=== PATIENT | male | born 1950 | race Caucasian/White ===

== ENCOUNTER 2025-08-17 19:20 | Emergency (ER) | payer MEDICARE, SELFPAY ==
--- OUTSIDE RECORDS SUMMARY | 2025-08-17 19:27 | XMS_ITS | Encounter Summary ---
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
--- OUTSIDE RECORDS SUMMARY | 2025-08-17 19:27 | XMS_ITS | Encounter Summary ---
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
--- OUTSIDE RECORDS SUMMARY | 2025-08-17 19:27 | XMS_ITS | Encounter Summary ---
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
--- OUTSIDE RECORDS SUMMARY | 2025-08-17 19:27 | XMS_ITS | Encounter Summary ---
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
--- OUTSIDE RECORDS SUMMARY | 2025-08-17 19:27 | XMS_ITS | Encounter Summary ---
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
--- OUTSIDE RECORDS SUMMARY | 2025-08-17 19:27 | XMS_ITS | Clinical Summary ---
Author Organization [facility] Address [address] 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
[2025-08-17 19:28] VITALS: BP 174/75; PULSE 56; TEMP 36.6; O2SAT 100
--- OUTSIDE RECORDS SUMMARY | 2025-08-17 19:28 | XMS_ITS | Data Portability ---
Author Organization ABDIRAHMAN [facility] Address [address] [place] [address] Assessment No assessment recorded. Plan of Treatment Reminders Order Date Submit Date Provider Last Modified By Organization Details Last Modified Time Details Appointments RECHECK 15 2025 08:30A Gage Weaver MD Not available Not available Not available Lab hemoglob in A1C/hemo globin total, QN, blood 2024 025 [facility], [address], [address], [place], [address], 07/13/2025 10:40:04 CMP, serum or plasma 2024 025 [facility], [address], [address], [place], [address], 07/13/2025 11:29:31 hemoglob in A1C/hemo globin total, QN, blood 2024 025 [facility], [address], [address], [place], [address], 01/14/2025 10:53:26 microalb umin, urine 2024 025 [email or web address] [facility], [address], [address], [place], [address], 01/21/2025 09:36:04 CMP, serum or plasma 2024 025 [facility], [address], [address], [place], [address], 01/14/2025 10:34:31 lipid panel, blood 2024 025 [facility], [address], [address], [place], [address], 01/14/2025 10:34:34 CBC 2024 025 [facility], [address], [address], [place], [address], 01/14/2025 10:25:33 CMP, serum or plasma 2023 024 [facility], [address], [address], [place], [address], 07/13/2024 10:11:09 HbA1c (hemoglo bin A1c), blood 2023 024 [facility] ([facility]), [address] [place] [address], [phone], 07/13/2024 09:59:05 lipid panel, blood 2023 024 [facility], [address], [address], [place], [address], 01/09/2024 11:09:51 CMP, serum or plasma 2023 024 [email or web address] [facility], [address], [address], [place], [address], 01/09/2024 13:21:47 HbA1c (hemoglo bin A1c), blood 2023 024 [facility] ([facility]), [address] [place] [address], [phone], 01/09/2024 10:37:29 CMP, serum or plasma [address] ([facility]), [address] [place], [address], 02/06/2025 13:34:07 HbA1c (hemoglo bin A1c), blood [address] ([facility]), [address] [place], [address], 02/06/2025 13:34:17 Referral None recorded . Procedures None recorded . Surgeries None recorded . Imaging None recorded . Medication Orders Jardianc e 10 mg tablet 2024 025 [email or web address] Not available 07/13/2025 09:59:25 losartan 100 mg-hydro chloroth iazide 25 mg tablet 2024 025 [facility] [place], [address] [place] [address], [address], 07/15/2025 12:13:04 Ozempic 2 mg/dose (8 mg/3 mL) subcutan eous pen injector 2024 025 [id number], [address], [place], [place], [id number], 01/14/2025 09:41:30 losartan 100 mg-hydro chloroth iazide 25 mg tablet 2024 025 [facility] #[id number], [address], [place], [place], [id number], 01/14/2025 09:41:30 atorvast atin 10 mg tablet 2022 023 [facility][id number], [address], [place], [place], [id number], 01/09/2024 09:50:39 losartan 100 mg-hydro chloroth iazide 25 mg tablet 2022 023 [facility] #[id number], [address], [place], [place], [id number], 07/09/2023 17:56:16 Patient TargetsNo targets recorded. Patient InstructionsNo instructions recorded. Reason for Referral None Reported. Results Created Date Observation Date Name Description Value Unit Range Abnormal Flag Note LastModifiedBy Organization Detail LastModifiedTime 07/09/2007/09/2023 HGBA1 C hemaglobin A1C 6.8 4.2-6. 5 high Not Available [facility] [address] [facility] [address], [place], [address], 07/09/2023 18:47:41 07/10/20 23 07/10/2023 CMP (MALE ) glucose 116.0 mg/dL 60.0-9 9.0 high Not Available [facility] [address] [facility] [address], [place], [address], 07/10/2023 10:02:08 07/10/20 23 07/10/2023 CMP (MALE ) BUN (blood urea nitrogen) 17.0 mg/dL 10.0-2 6.0 Not Available [facility] [address] [facility] [address], [place], [address], 07/10/2023 10:02:08 07/10/20 23 07/10/2023 CMP (MALE ) creatinine (serum) 0.9 mg/dL 0.4-1. 5 Not Available [place] [facility] [address] [facility] [address], [place], [address], 07/10/2023 10:02:08 07/10/20 23 07/10/2023 CMP (MALE ) BUN/creatini ne ratio 18.89 ratio Not Available [facility] [address] [facility] [address], [place], [address], 07/10/2023 10:02:08 07/10/20 23 07/10/2023 CMP (MALE ) eGFR calculated 88.2 Not Available [facility] [address] [facility] 1, [place], [address], 07/10/2023 10:02:08 07/10/20 23 07/10/2023 CMP (MALE ) total protein 7.7 g/dL 6.0-8. 5 Not Available [facility] [address] [facility], [place], [address], 07/10/2023 10:02:08 07/10/20 23 07/10/2023 CMP (MALE ) total bilirubin 0.6 mg/dL 0.2-1. 3 Not Available [facility] [address] [facility], [place], [address], 07/10/2023 10:02:08 07/10/20 23 07/10/2023 CMP (MALE ) albumin 4.7 g/dL 3.5-5. 5 Not Available [facility] [address] [facility] Lilly [facility] 1, [place], [address], 07/10/2023 10:02:08 07/10/20 23 07/10/2023 CMP (MALE ) globulin 3.0 calc Not Available [facility] [address] [facility], [place], [address], 07/10/2023 10:02:08 07/10/20 23 07/10/2023 CMP (MALE ) AST (SGOT) 35.0 U/L 0.0-46 .0 Not Available [facility] [address] [facility] 1, [place], [address], 07/10/2023 10:02:08 07/10/20 23 07/10/2023 CMP (MALE ) altv (SGPT) 31.0 U/L 13.0-6 9.0 normal Not Available [facility] [address] [facility] 1, [place], [address], 07/10/2023 10:02:08 07/10/20 23 07/10/2023 CMP (MALE ) A/G ratio 1.6 ratio Not Available [facility] [address] [facility], [place], [address], 07/10/2023 10:02:08 07/10/20 23 07/10/2023 CMP (MALE ) ALP phos 79.0 U/L 30.0-1 40.0 normal Not Available [facility] [address] [facility], [place], [address], 07/10/2023 10:02:08 07/10/20 23 07/10/2023 CMP (MALE ) calcium 9.3 mg/dL 8.4-10 .5 Not Available [facility] [address] [facility], [place], [address], 07/10/2023 10:02:08 07/10/20 23 07/10/2023 CMP (MALE ) sodium 138.0 mmol/ L 136.0- 145.0 Not Available [facility] [address] [facility], [place], [address], 07/10/2023 10:02:08 07/10/20 23 07/10/2023 CMP (MALE ) potassium 4.1 mmol/ L 3.5-5. 1 Not Available [facility] [address] [facility], [place], [address], 07/10/2023 10:02:08 07/10/20 23 07/10/2023 CMP (MALE ) chloride 99.0 mmol/ L 98.0-1 10.0 normal Not Available [facility] [address] [facility] Lilly [facility] 1, [place], [address], 07/10/2023 10:02:08 07/10/20 23 07/10/2023 CMP (MALE ) C02 30.0 mmol/ L 22.0-3 1.0 Not Available [facility] [address], [place], [address], 07/10/2023 10:02:08 07/10/20 23 07/10/2023 CMP (MALE ) anion gap 9.0 calc Not Available [facility] [address] [facility], [place], [address], 07/10/2023 10:02:08 07/10/20 23 07/10/2023 CMP (MALE ) osmolality 287.5 calc Not Available [facility] [address] [facility], [place], [address], 07/10/2023 10:02:08 01/09/20 24 01/09/2024 CMP (MALE ) glucose 154.0 mg/dL 60.0-9 9.0 high Not Available [facility] [address] [facility], [place], [address], 01/09/2024 11:09:49 01/09/20 24 01/09/2024 CMP (MALE ) BUN (blood urea nitrogen) 17.0 mg/dL 10.0-2 6.0 Not Available [facility] [address] [facility], [place], [address], 01/09/2024 11:09:49 01/09/20 24 01/09/2024 CMP (MALE ) creatinine (serum) 0.9 mg/dL 0.4-1. 5 Not Available [facility] [address] [facility], [place], [address], 01/09/2024 11:09:49 01/09/20 24 01/09/2024 CMP (MALE ) BUN/creatini ne ratio 19.54 ratio Not Available [facility] [address] [facility] 1, [place], [address], 01/09/2024 11:09:49 01/09/20 24 01/09/2024 CMP (MALE ) eGFR calculated 91.4 Not Available [facility] n [facility] [address] [facility] 1, [place], [address], 01/09/2024 11:09:49 01/09/20 24 01/09/2024 CMP (MALE ) total protein 7.6 g/dL 6.0-8. 5 Not Available [facility] [address] [facility] 1, [place], [address], 01/09/2024 11:09:49 01/09/20 24 01/09/2024 CMP (MALE ) total bilirubin 0.7 mg/dL 0.2-1. 3 Not Available [facility] [address] [facility] 1, [place], [address], 01/09/2024 11:09:49 01/09/20 24 01/09/2024 CMP (MALE ) albumin 4.4 g/dL 3.5-5. 5 Not Available [facility] [address] [facility] 1, [place], [address], 01/09/2024 11:09:49 01/09/20 24 01/09/2024 CMP (MALE ) globulin 3.2 calc Not Available [facility] [address] [facility] 1, [place], [address], 01/09/2024 11:09:49 01/09/20 24 01/09/2024 CMP (MALE ) AST (SGOT) 33.0 U/L 0.0-46 .0 Not Available [facility] [address] [facility] 1, [place], [address], 01/09/2024 11:09:49 01/09/20 24 01/09/2024 CMP (MALE ) altv (SGPT) 29.0 U/L 13.0-6 9.0 normal Not Available [place] [facility] [address] [facility] [address], [place], [address], 01/09/2024 11:09:49 01/09/20 24 01/09/2024 CMP (MALE ) A/G ratio 1.4 ratio Not Available Gonzalez Jhon [facility] [address] [facility] [address], [place], [address], 01/09/2024 11:09:49 01/09/20 24 01/09/2024 CMP (MALE ) ALP phos 89.0 U/L 30.0-1 40.0 normal Not Available [facility] [address] [facility] [address], [place], [address], 01/09/2024 11:09:49 01/09/20 24 01/09/2024 CMP (MALE ) calcium 9.1 mg/dL 8.4-10 .5 Not Available [facility] [address] [facility] [address], [place], [address], 01/09/2024 11:09:49 01/09/20 24 01/09/2024 CMP (MALE ) sodium 137.0 mmol/ L 136.0- 145.0 Not Available [facility] [address] [facility] [address], [place], [address], 01/09/2024 11:09:49 01/09/20 24 01/09/2024 CMP (MALE ) potassium 3.7 mmol/ L 3.5-5. 1 Not Available [facility] [address] [facility] [address], [place], [address], 01/09/2024 11:09:49 01/09/20 24 01/09/2024 CMP (MALE ) chloride 103.0 mmol/ L 98.0-1 10.0 normal Not Available [facility] [address] [facility] Quintan[facility] 1, [place], [address], 01/09/2024 11:09:49 01/09/20 24 01/09/2024 CMP (MALE ) C02 30.0 mmol/ L 22.0-3 1.0 Not Available [facility] [address] [facility] 1, [place], [address], 01/09/2024 11:09:49 01/09/20 24 01/09/2024 CMP (MALE ) anion gap 4.0 calc Not Available [facility] [address] [facility], [place], [address], 01/09/2024 11:09:49 01/09/20 24 01/09/2024 CMP (MALE ) osmolality 287.4 calc Not Available [facility] [address] [facility], [place], [address], 01/09/2024 11:09:49 01/09/20 24 01/09/2024 LIPID PROFI LE (MALE ) cholesterol 251.0 mg/dL 0.0-20 0.0 high Not Available [facility] [address] [facility], [place], [address], 01/09/2024 11:09:51 01/09/20 24 01/09/2024 LIPID PROFI LE (MALE ) trig 221.0 mg/dL 0.0-15 0.0 high Not Available [facility] [address] [facility] Lilly [facility] 1, [place], [address], 01/09/2024 11:09:51 01/09/20 24 01/09/2024 LIPID PROFI LE (MALE ) HDL - direct 42.0 mg/dL >40.0 Not Available [facility] [address] [facility] 1, [place], [address], 01/09/2024 11:09:51 01/09/20 24 01/09/2024 LIPID PROFI LE (MALE ) VLDL - direct 44.2 mg/dL Not Available [facility] [address] [facility] [address], [place], [address], 01/09/2024 11:09:51 01/09/20 24 01/09/2024 LIPID PROFI LE (MALE ) LDL - direct 164.8 mg/dL 0.0-13 0.0 high Not Available [facility] [address] [facility] [address], [place], [address], 01/09/2024 11:09:51 01/09/20 24 01/09/2024 HbA1c (hemo globi n A1c), blood HbA1c 8.3 Not Available [facility] [address] [place], [address], 01/09/2024 10:08:27 07/13/20 24 07/13/2024 CMP (MALE ) glucose 115.0 mg/dL 60.0-9 9.0 high Not Available [facility] [address] [address], [place], [address], 07/13/2024 10:11:09 07/13/20 24 07/13/2024 CMP (MALE ) BUN (blood urea nitrogen) 21.0 mg/dL 10.0-2 6.0 Not Available [facility] [address] [address], [place], [address], 07/13/2024 10:11:09 07/13/20 24 07/13/2024 CMP (MALE ) creatinine (serum) 1.0 mg/dL 0.4-1. 5 Not Available [facility] [address], [address], 07/13/2024 10:11:09 07/13/20 24 07/13/2024 CMP (MALE ) BUN/creatini ne ratio 20.39 ratio Not Available [facility] [address] [facility] 1, [place], [address], 07/13/2024 10:11:09 07/13/20 24 07/13/2024 CMP (MALE ) eGFR calculated 75.2 Not Available [facility] [address] [facility] 1, [place], [address], 07/13/2024 10:11:09 07/13/20 24 07/13/2024 CMP (MALE ) total protein 7.4 g/dL 6.0-8. 5 Not Available [facility] [address] [facility] Quintanillae [facility] 1, [place], [address], 07/13/2024 10:11:09 07/13/20 24 07/13/2024 CMP (MALE ) total bilirubin 0.6 mg/dL 0.2-1. 3 Not Available [facility] [address] [facility] 1, [place], [address], 07/13/2024 10:11:09 07/13/20 24 07/13/2024 CMP (MALE ) albumin 4.0 g/dL 3.5-5. 5 Not Available [facility] [address] [facility] 1, [place], [address], 07/13/2024 10:11:09 07/13/20 24 07/13/2024 CMP (MALE ) globulin 3.4 calc Not Available [facility] [address] [facility] 1, [place], [address], 07/13/2024 10:11:09 07/13/20 24 07/13/2024 CMP (MALE ) AST (SGOT) 53.0 U/L 0.0-46 .0 high Not Available [facility] [address] [facility] 1, [place], [address], 07/13/2024 10:11:09 07/13/20 24 07/13/2024 CMP (MALE ) altv (SGPT) 23.0 U/L 13.0-6 9.0 normal Not Available [facility] [address] [facility] 1, [place], [address], 07/13/2024 10:11:09 07/13/20 24 07/13/2024 CMP (MALE ) A/G ratio 1.2 ratio Not Available [facility] [address] [facility] 1, [place], [address], 07/13/2024 10:11:09 07/13/20 24 07/13/2024 CMP (MALE ) ALP phos 88.0 U/L 30.0-1 40.0 normal Not Available [facility] [address] [facility], [place], [address], 07/13/2024 10:11:09 07/13/20 24 07/13/2024 CMP (MALE ) calcium 9.1 mg/dL 8.4-10 .5 Not Available [facility] [address] [facility], [place], [address], 07/13/2024 10:11:09 07/13/20 24 07/13/2024 CMP (MALE ) sodium 137.0 mmol/ L 136.0- 145.0 Not Available [facility] [address] [facility], [place], [address], 07/13/2024 10:11:09 07/13/20 24 07/13/2024 CMP (MALE ) potassium 4.1 mmol/ L 3.5-5. 1 Not Available [facility] [address] [facility], [place], [address], 07/13/2024 10:11:09 07/13/20 24 07/13/2024 CMP (MALE ) chloride 104.0 mmol/ L 98.0-1 10.0 normal Not Available [facility] [address] [facility] [address], [place], [address], 07/13/2024 10:11:09 07/13/20 24 07/13/2024 CMP (MALE ) C02 27.0 mmol/ L 22.0-3 1.0 Not Available [facility] [address] [facility] [address], [place], [address], 07/13/2024 10:11:09 07/13/20 24 07/13/2024 CMP (MALE ) anion gap 6.0 calc Not Available Gonzalez C lisak [facility] [address] [facility] [address], [place], [address], 07/13/2024 10:11:09 07/13/20 24 07/13/2024 CMP (MALE ) osmolality 286.8 calc Not Available [facility] [address] [facility] [address], [place], [address], 07/13/2024 10:11:09 07/13/20 24 07/13/2024 HbA1c (hemo globi n A1c), blood HbA1c 6.4 Not Available [facility] [address] [place], [address], 07/13/2024 09:30:52 01/14/2001/14/2025 CBC WBC 9.3 x10 4.5-10 .5 Not Available [facility] [address] [facility] [address], [place], [address], 01/14/2025 10:25:33 01/14/20 25 01/14/2025 CBC RBC 4.68 x10 4.30-5 .90 Not Available [facility] [address] [facility] [address], [place], [address], 01/14/2025 10:25:33 01/14/20 25 01/14/2025 CBC HGB 14.0 g/dL 13.5-1 8.0 Not Available [facility] [address] [facility] 1, [place], [address], 01/14/2025 10:25:33 01/14/20 25 01/14/2025 CBC HCT 40.6 % 35.0-6 0.0 Not Available [facility] [address] [facility] 1, [place], [address], 01/14/2025 10:25:33 01/14/20 25 01/14/2025 CBC MCV 86.8 fL 80.0-9 9.9 Not Available [facility] [address] [facility] 1, [place], [address], 01/14/2025 10:25:33 01/14/20 25 01/14/2025 CBC MCH 29.9 pg 27.0-3 2.0 Not Available [facility] [address] [facility] 1, [place], [address], 01/14/2025 10:25:33 01/14/20 25 01/14/2025 CBC MCHC 34.5 g/dL 32.0-3 6.0 Not Available [facility] [address] [facility] 1, [place], [address], 01/14/2025 10:25:33 01/14/20 25 01/14/2025 CBC RDW 14.0 % 11.5-1 4.5 Not Available G[facility] [address] [facility] 1, [place], [address], 01/14/2025 10:25:33 01/14/20 25 01/14/2025 CBC plt 247.5 x10 150.0- 451.0 Not Available [facility] [address] [facility] [address] [address], [place], [address], 01/14/2025 10:25:33 01/14/20 25 01/14/2025 CBC lymphocytes % 16.0 % 20.0-5 0.0 low Not Available [facility] [address] [facility], [place], [address], 01/14/2025 10:25:33 01/14/20 25 01/14/2025 CBC granulcytes % 73.5 % 30.0-7 0.0 high Not Available [place] [facility] [address] [facility], [place], [address], 01/14/2025 10:25:33 01/14/20 25 01/14/2025 CBC monocytes % 8.8 % 2.0-16 .0 Not Available [facility] [address] [address], [place], [address], 01/14/2025 10:25:33 01/14/20 25 01/14/2025 CBC granulcytes# 6.9 x10 Not Abbie ilable [facility] [address] [address], [place], [address], 01/14/2025 10:25:33 01/14/20 25 01/14/2025 CBC lymphocytes # 1.5 x10 Not Available [facility] [address] [address], [place], [address], 01/14/2025 10:25:33 01/14/20 25 01/14/2025 CBC monocytes # 0.8 x10 Not Avai lable [facility] [address] [facility], [place], [address], 01/14/2025 10:25:33 01/14/20 25 01/14/2025 CMP (MALE ) glucose 117.0 mg/dL 60.0-9 9.0 high Not Available [facility] [address] [facility] 1, [place], [address], 01/14/2025 10:34:31 01/14/20 25 01/14/2025 CMP (MALE ) BUN (blood urea nitrogen) 23.0 mg/dL 10.0-2 6.0 Not Available [facility] [address] [facility] [address], [place], [address], 01/14/2025 10:34:31 01/14/20 25 01/14/2025 CMP (MALE ) creatinine (serum) 1.1 mg/dL 0.4-1. 5 Not Available [facility] [address] [facility] [address], [place], [address], 01/14/2025 10:34:31 01/14/20 25 01/14/2025 CMP (MALE ) BUN/creatini ne ratio 20.91 ratio Not Available [facility] [address] [facility] [address], [place], [address], 01/14/2025 10:34:31 01/14/20 25 01/14/2025 CMP (MALE ) eGFR calculated 69.5 Not Available [facility] [address] [facility] [address], [place], [address], 01/14/2025 10:34:31 01/14/20 25 01/14/2025 CMP (MALE ) total protein 7.7 g/dL 6.0-8. 5 Not Available [facility] [address] [facility] [address], [place], [address], 01/14/2025 10:34:31 01/14/20 25 01/14/2025 CMP (MALE ) total bilirubin 0.8 mg/dL 0.2-1. 3 Not Available [facility] [address] [facility] [address], [place], [address], 01/14/2025 10:34:31 01/14/20 25 01/14/2025 CMP (MALE ) albumin 4.3 g/dL 3.5-5. 5 Not Available [facility] [address] [facility], [place], [address], 01/14/2025 10:34:31 01/14/20 25 01/14/2025 CMP (MALE ) globulin 3.4 calc Not Available [facility] [address] [facility] [address], [place], [address], 01/14/2025 10:34:31 01/14/20 25 01/14/2025 CMP (MALE ) AST (SGOT) 35.0 U/L 0.0-46 .0 Not Available [facility] [address] [facility] 1, [place], [address], 01/14/2025 10:34:31 01/14/20 25 01/14/2025 CMP (MALE ) altv (SGPT) 28.0 U/L 13.0-6 9.0 normal Not Available [facility] [address] [facility], [place], [address], 01/14/2025 10:34:31 01/14/20 25 01/14/2025 CMP (MALE ) A/G ratio 1.3 ratio Not Available Gonzalez C [facility]ek [facility] [address] [address], [place], [address], 01/14/2025 10:34:31 01/14/20 25 01/14/2025 CMP (MALE ) ALP phos 74.0 U/L 30.0-1 40.0 normal Not Available [facility] [address] [facility] [address], [place], [address], 01/14/2025 10:34:31 01/14/20 25 01/14/2025 CMP (MALE ) calcium 9.4 mg/dL 8.4-10 .5 Not Available [facility] [address] [facility] [address], [place], [address], 01/14/2025 10:34:31 01/14/20 25 01/14/2025 CMP (MALE ) sodium 140.0 mmol/ L 136.0- 145.0 Not Available [facility] [address] [facility] [place], [address], 01/14/2025 10:34:31 01/14/20 25 01/14/2025 CMP (MALE ) potassium 4.1 mmol/ L 3.5-5. 1 Not Available [facility] [address] [facility] [address], [place], [address], 01/14/2025 10:34:31 01/14/20 25 01/14/2025 CMP (MALE ) chloride 101.0 mmol/ L 98.0-1 10.0 normal Not Available [facility] [address] [facility] [address], [place], [address], 01/14/2025 10:34:31 01/14/20 25 01/14/2025 CMP (MALE ) C02 29.0 mmol/ L 22.0-3 1.0 Not Available [facility] [address] [facility] 1, [place], [address], 01/14/2025 10:34:31 01/14/20 25 01/14/2025 CMP (MALE ) anion gap 10.0 calc Not Available [facility] [address] [facility] 1, [place], [address], 01/14/2025 10:34:31 01/14/20 25 01/14/2025 CMP (MALE ) osmolality 293.5 calc Not Available [facility] [address] [facility] 1, [place], [address], 01/14/2025 10:34:31 01/14/20 25 01/14/2025 LIPID PROFI LE (MALE ) cholesterol 188.0 mg/dL 0.0-20 0.0 Not Available [facility] [address] [facility] 1, [place], [address], 01/14/2025 10:34:33 01/14/20 25 01/14/2025 LIPID PROFI LE (MALE ) trig 187.0 mg/dL 0.0-15 0.0 high Not Available [facility] [address] [facility] 1, [place], [address], 01/14/2025 10:34:33 01/14/20 25 01/14/2025 LIPID PROFI LE (MALE ) HDL - direct 46.0 mg/dL >40.0 Not Available [facility] [address] [address], [place], [address], 01/14/2025 10:34:33 01/14/20 25 01/14/2025 LIPID PROFI LE (MALE ) VLDL - direct 37.4 mg/dL Not Available [facility] [address] [address], [place], [address], 01/14/2025 10:34:33 01/14/20 25 01/14/2025 LIPID PROFI LE (MALE ) LDL - direct 104.6 mg/dL 0.0-13 0.0 Not Available [facility] [address] [facility] 1, [place], [address], 01/14/2025 10:34:33 01/14/20 25 01/14/2025 HBA1C hemaglobin A1C 5.9 4.2-6. 5 normal Not Available [facility] [address] [facility] 1, [place], [address], 01/14/2025 10:53:26 01/14/20 25 01/16/2025 ALBUM IN, RANDO M URINE W/CRE ATINI NE creatinine, random urine 234 mg/dL 20-320 normal Not Available [facility] [address] [place], [address], 01/16/2025 04:37:04 01/14/20 25 01/16/2025 ALBUM IN, RANDO M URINE W/CRE ATINI NE albumin, urine 2.2 mg/dL see note: normal Refer ence Range : Refer ence Range Not estab lishe d Not Available [facility] [address], [place], [address], 01/16/2025 04:37:04 01/14/20 25 01/16/2025 ALBUM IN, RANDO M URINE W/CRE ATINI NE albumin/crea tinine ratio, random urine 9 mg/g_ creat <30 normal The ADA defin es abnor malit ies in album in excre tion as follo ws: Album inuri a Categ ory Resul t (mg/g creat inine ) Simona l to Mildl y incre ased <30 Moder ately incre ased 30-29 9 Sever ceci incre ased > OR = 300 The ADA recom mends that at least two of three speci mens colle cted withi n a 3-6 month perio d be abnor mal befor e consi jennifer g a patie nt to be withi n a diagn ostic categ ory. Not Available [facility] [address] [facility] [place], [address], 01/16/2025 04:37:04 05/30/20 25 05/30/2025 COLOG UARD cologuard result reportable NEGATI VE negati ve normal The Colog uard (TM) test was perfo rmed on this speci men. NEGAT JAE TEST RESUL T. A negat jae Colog uard resul t indic ates a low likel ihood that a color ectal cance r (CRC) or advan randa adeno ma (oralia omato us polyp s with more advan randa pre-m align ant featu res) is prese nt. The chanc e that a perso n with a negat jae Colog uard test has a color ectal cance r is less than 1 in 1500 (nega tive predi ctive value >99.9 %) or has an advan randa adeno ma is less than 5.3% (nega tive predi ctive value 94.7% ). These data are based on a prosp ectiv e cross -sect ional study of 10,00 0 indiv idual s at [place] ge risk for color ectal cance r who were scree memo with both Colog uard and colon oscop y. (Impe duran Estrada et al, N Engl J Med 2014; 370(1 4):12 86-12 97) The simona l value (refe rence range ) for this assay is negat jae. COLOG UARD RE-SC NICO CONLEY RECOM MENDA TION: Perio dic color ectal cance r scree glenn is an impor tant part of preve ntive healt hcare for asymp tomat ic indiv idual s at [place] ge risk for color ectal cance r. Follo wing a negat jae Colog uard resul t, the Ameri can Cance r Socie ty and U.S. Multi -Soci ety Task Force scree glenn guide lines recom mend a Colog uard re-sc nico conley inter symone of 3 years . Refer ences : Ameri can Cance r Socie ty Guide line for Color ectal Cance r Scree glenn: https ://jean carlos w.can cer.o rg/ca ncer/ colon -rect al-ca ncer/ detec tion- diagn osis- stagi ng/ac s-rec ommen datio ns.ht ml.; Kit HINTON, Kodak nicholas CR, Dario knight JK, Color ectal Cance r Scree glenn: Recom menda tions for Physi cians and Patie nts from the U.S. Multi -Soci ety Task Force on Color ectal Cance r Scree glenn , Renetta inmanntmilton rolog y 2017; 112:1 016-1 030. TEST DESCR IPTIO N: [place] site algor ithmi c tatum sis of stool DNA-b yuki green with hemog lobin immun oassa y. Quant itati ve value s of indiv idual bioma rkers are not repor table and are not assoc iated with indiv idual bioma rker resul t refer ence range s. Colog uard is inten ded for color ectal cance r scree glenn of adult s of eithe r sex, 45 years or older , who are at [facility] for color ectal cance r (CRC) . Colog uard has been appro audrey for use by the U.S. FDA. The perfo rmanc e of Colog uard was estab lishe d in a cross secti onal study of [facility] adult s aged 50-84 . Colog uard perfo rmanc e in patie nts ages 45 to 49 years was estim ated by jake-matthias purvis tatum sis of near- age group s. Colon oscop ies perfo rmed for a posit jae resul t may find as the most clini suki signi ficruthy t lesio n: color ectal cance r [4.0% ], advan randa adeno ma (incl uding sessi le rene john polyp s great er than or equal to 1cm diame ter) [20%] or non- advan randa adeno ma [31%] ; or no color ectal neopl valeria [45%] . These estim ates are deriv ed from a prosp ectiv e cross -sect ional scree glenn study of 10,00 0 indiv idual s at [facility] risk for color ectal cance r who were scree memo with both Colog uard and colon oscop y. (Rosa Isela Jimenez al, N Engl J Med 2014; 370(1 4):12 86-12 97.) Colog uard may produ ce a false negat jae or false posit jae resul t (no color ectal cance r or preca ncero us polyp prese nt at colon oscop y follo w up). A negat jae Colog uard test resul t does not guara ntee the absen ce of CRC or advan randa adeno ma (pre- cance r). The curre nt Colog uard scree glenn inter symone is every 3 years . (Amer ican Cance r Socie ty and U.S. Multi -Soci ety Task Force ). Colog uard perfo rmanc e data in a 10,00 0 patie nt pivot al study using colon oscop y as the refer ence metho d can be acces sed at the follo wing locat ion: www.e xactl abs.c om/re sults . Addit ional descr iptio n of the Colog uard test proce ss, warni ngs and preca ution s can be found at www.c ologu davida.c om. Not Available [employer] (Cologuard Orders Only) [address], [place], [address], 06/05/2025 19:31:45 07/13/2007/13/2025 HBA1C hemaglobin A1C 5.9 4.2-6. 5 Not Available [facility] [address] [facility] 1, [place], [address], 07/13/2025 10:40:04 07/13/20 25 07/13/2025 CMP (MALE ) glucose 126.0 mg/dL 60.0-9 9.0 high Not Available [facility] [address] [facility] 1, [place], [address], 07/13/2025 11:29:31 07/13/20 25 07/13/2025 CMP (MALE ) BUN (blood urea nitrogen) 17.0 mg/dL 10.0-2 6.0 Not Available [facility] [address] [facility] 1, [place], [address], 07/13/2025 11:29:31 07/13/20 25 07/13/2025 CMP (MALE ) creatinine (serum) 1.1 mg/dL 0.4-1. 5 Not Available [facility] [address] [facility] 1, [place], [address], 07/13/2025 11:29:31 07/13/20 25 07/13/2025 CMP (MALE ) BUN/creatini ne ratio 15.45 ratio Not Available [facility] [address] [facility] 1, [place], [address], 07/13/2025 11:29:31 07/13/20 25 07/13/2025 CMP (MALE ) eGFR calculated 69.5 Not Available [facility] [address] [facility] 1, [place], [address], 07/13/2025 11:29:31 07/13/20 25 07/13/2025 CMP (MALE ) total protein 8.0 g/dL 6.0-8. 5 Not Available [facility] [address] [facility], [place], [address], 07/13/2025 11:29:31 07/13/20 25 07/13/2025 CMP (MALE ) total bilirubin 0.9 mg/dL 0.2-1. 3 Not Available [facility] [address] [facility], [place], [address], 07/13/2025 11:29:31 07/13/20 25 07/13/2025 CMP (MALE ) albumin 4.5 g/dL 3.5-5. 5 Not Available [facility] [address] [facility], [place], [address], 07/13/2025 11:29:31 07/13/20 25 07/13/2025 CMP (MALE ) globulin 3.5 calc Not Available [facility] [address] [facility], [place], [address], 07/13/2025 11:29:31 07/13/20 25 07/13/2025 CMP (MALE ) AST (SGOT) 43.0 U/L 0.0-46 .0 Not Available [facility] [address] [facility] 1, [place], [address], 07/13/2025 11:29:31 07/13/20 25 07/13/2025 CMP (MALE ) altv (SGPT) 34.0 U/L 13.0-6 9.0 normal Not Available [facility] [address] [facility] 1, [place], [address], 07/13/2025 11:29:31 07/13/20 25 07/13/2025 CMP (MALE ) A/G ratio 1.3 ratio Not Available [facility] [address] [facility] [address], [place], [address], 07/13/2025 11:29:31 07/13/20 25 07/13/2025 CMP (MALE ) ALP phos 91.0 U/L 30.0-1 40.0 normal Not Available [facility] [address] [facility] 1, [place], [address], 07/13/2025 11:29:31 07/13/20 25 07/13/2025 CMP (MALE ) calcium 9.3 mg/dL 8.4-10 .5 Not Available [facility] [address] [facility] 1, [place], [address], 07/13/2025 11:29:31 07/13/20 25 07/13/2025 CMP (MALE ) sodium 137.0 mmol/ L 136.0- 145.0 Not Available [facility] [address] [facility] 1, [place], [address], 07/13/2025 11:29:31 07/13/20 25 07/13/2025 CMP (MALE ) potassium 4.3 mmol/ L 3.5-5. 1 Not Available [facility] [address] [facility] 1, [place], [address], 07/13/2025 11:29:31 07/13/20 25 07/13/2025 CMP (MALE ) chloride 99.0 mmol/ L 98.0-1 10.0 normal Not Available [facility] [address] [facility] 1, [place], [address], 07/13/2025 11:29:31 07/13/20 25 07/13/2025 CMP (MALE ) C02 30.0 mmol/ L 22.0-3 1.0 Not Available [facility] [address] [facility] 1, [place], [address], 07/13/2025 11:29:31 07/13/20 25 07/13/2025 CMP (MALE ) anion gap 8.0 calc Not Available [facility] [address] [facility] 1, [place], [address], 07/13/2025 11:29:31 07/13/20 25 07/13/2025 CMP (MALE ) osmolality 286.0 calc Not Available [facility] [address] [facility] 1, [place], [address], 07/13/2025 11:29:31 Result Notes None recorded. Problems Name Problem SNOMED Code Status Onset Date Resolution Date Notes Provider Name and Address Organization Details Recorded Time Clinical finding Completed 201209/22/2013 Obesity - Status is Inactive ; 09/22/20 13 7:30AM by Mookie Greenberg MD, Annotati on/Adden dum; Promoted ; acuity set as *; Not Available [employer] 3 03:11:02 Hyperchol esterolem ia 91793504 Active 2019 Hypercho lesterol emia; 06/09/20 20 8:07AM by Fiordaliza Downing RN, Office Visit; Promoted ; acuity set as *; FIORDALIZA gaitan [facility] 5 09:19:22 Essential hypertens ion 89104598 Active 2022 FIORDALIZA gaitan [facility] 5 09:19:20 Type 2 diabetes mellitus 69903273 Active 2022 Frankie Weaver MD [address] [place], [address] , [facility] 5 09:50:42 Problem Notes None recorded. Procedures Surgical History Date Name Laterality Status Provider Name and Address Organization Details Recorded Time 5 colonoscopy completed SHERRY PALOMOPIA [address] [place], [address], [facility] 06/06/2025 12:27:36 Imaging Results None recorded. Procedure Notes None recorded. Medical Equipment None Reported. Allergies Allergen ID Allergen Name Allergen Category Reaction Reaction Severity Criticality Documentation Date Start Date Code Code System Note Provider Name and Address Organization Details Recorded Time 65069 atorvasta tin medicatio n abdominal pain Not available Not available 09/22/2024 54864 RxNorm FIORDALIZA gaitan [facility] 4 14:28:34 Medications Name Sig Start Date Stop Date Status Note LastModified by Organization Details LastModified Time atorvasta tin 20 mg tablet Take 1 tablet every day by oral route for 90 days. 07/09 completed Not Available Not Available Not Available atorvasta tin 10 mg tablet TAKE 1 TABLET BY MOUTH EVERY DAY 01/09 completed Not Available Not Available Not Available tizanidin e 4 mg tablet four times daily, as needed 07/09 completed Recorded 05/24/20 22 8:27AM by Frankie Weaver MD, Office Visit; Refill Quantity : 50; Tablet; Not Available Not Available Not Available losartan 100 mg-hydroc hlorothia zide 25 mg tablet TAKE 1 TABLET BY MOUTH EVERY DAY active Not Available Not Available No t Available IBU 400 mg tablet Take 1 tablet every 4 hours by oral route. active Not Available Not Available No t Available metformin ER 500 mg tablet,ex tended release 24 hr TAKE 1 TABLET BY MOUTH DAILY 07/09 completed Not Available Not Available Not Available neomycin 3.5 mg/g-poly myxin B 10,000 unit/g-de xameth 0.1 % eye oint APPLY 1/4 INCH TO THE EYELID THREE TIMES DAILY. START DAY OF PROCEDUR E AND. CONTINUE FOR 2-3 WEEKS 07/13 completed Not Available Not Available Not Available losartan 100 mg-hydroc hlorothia zide 12.5 mg tablet TAKE 1 TABLET BY MOUTH DAILY 01/09 completed Not Available Not Available Not Available metformin daily 07/09 completed Recorded 04/12/20 22 3:47PM by Frankie Weaver MD, Annotati on/Adden dum; Refill Quantity : 90; Tablet; Not Available Not Available Not Available Jardiance 10 mg tablet Take 1 tablet every day by oral route for 28 days, for samples given. He will let us know if he wants an Rx.. 2024 active Not Available Not Available Not Avai lable Ozempic 0.25 mg or 0.5 mg (2 mg/1.5 mL) subcutane ous pen injector Inject 1.5 mL every week by subcutan eous route. 07/13 completed Not Available Not Available Not Available losartan potassium (bulk) daily 07/09 completed new dosage; Recorded 04/12/20 8:39AM by Frankie Weaver MD, Office Visit; Refill Quantity : 90; Tablet; Not Available Not Available Not Available Ozempic 1 mg/dose (4 mg/3 mL) subcutane ous pen injector Inject 3 mL every week by subcutan eous route. 07/13 completed Not Available Not Available Not Available Ozempic 2 mg/dose (8 mg/3 mL) subcutane ous pen injector inject 2mg SUBCUTAN EOUSLY every week active Not Available Not Available No t Available Ozempic 0.25 mg or 0.5 mg (2 mg/3 mL) subcutane ous pen injector 07/13 completed Not Available Not Available Not Available Vitals Date Recorded Body height Body mass index (BMI) Body weight Oxygen saturation Oxygen saturation in Arterial blood by Pulse oximetry Heart rate Systolic And Diastolic Provider Name and Address Organization Details Last Updated DateTime 175.26 cm 35.4 kg/m2 928855. 17 g 96 % 96 % 66 /min 161/88 mm[Hg] FIORDALIZA [facility] 4 09:50:24 Date Recorded Body height Body mass index (BMI) Body weight Heart rate Systolic And Diastolic Provider Name and Address Organization Details Last Updated DateTime 01/14/2025 175.26 cm 30.6 kg/m2 28949.62 g 68 /min 160/99 mm[Hg] [facility] 5 09:24:39 Date Recorded Body weight Body mass index (BMI) Body height Oxygen saturation Oxygen saturation in Arterial blood by Pulse oximetry Heart rate Systolic And Diastolic Provider Name and Address Organization Details Last Updated DateTime 3 252401. 84 g 34.1 kg/m2 175.26 cm 98 % 98 % 78 /min 160/90 mm[Hg] FIORDALIZA [facility] 3 17:08:04 Date Recorded Body height Body mass index (BMI) Body weight Heart rate Systolic And Diastolic Provider Name and Address Organization Details Last Updated DateTime 07/13/2024 175.26 cm 31 kg/m2 65481.4 g 70 /min 155/70 mm[Hg] [facility] 4 09:16:02 Date Recorded Body height Body mass index (BMI) Body weight Oxygen saturation Oxygen saturation in Arterial blood by Pulse oximetry Heart rate Systolic And Diastolic Provider Name and Address Organization Details Last Updated DateTime 5 175.26 cm 30.7 kg/m2 20398.2 1 g 97 % 97 % 61 /min 162/90 mm[Hg] [facility] GARCIA [facility] 5 09:35:08 Social History None recorded. Functional Status Question Answer Note LastModified by Organizat ion Details LastModified Time Do you or have you ever used any other forms of tobacco or nicotine? No Information not available 07/09/2023 What is your level of alcohol consumption? Occasional Information not available 07/09/2023 Mental Status None recorded. Family History Nothing Reported. Medical History No medical history recorded. Immunizations Vaccine Type Date Status Note Provider Nam e and Address Organization Details Recorded Time Influenza, split virus, quadrivalent, preservative 4 completed Not Available [facility] 07/13/2025 09:17:46 Influenza, split virus, trivalent, PF 5 completed Not Available [facility] 07/13/2025 09:17:46 Influenza, high-dose, trivalent, PF 6 completed Not Available [facility] 07/13/2025 09:17:46 Pneumococcal conjugate PCV 13 6 completed Not Available [facility] 07/13/2025 09:17:46 Influenza, adjuvanted, trivalent, PF 8 completed Not Available [facility] 07/13/2025 09:17:46 Tdap 8 completed Not Available [facility] 07/13/2025 09:17:46 COVID-19, mRNA, LNP-S, PF, 30 mcg/0.3 mL dose 1 completed Not Available [facility] 07/13/2025 09:17:46 COVID-19, mRNA, LNP-S, PF, 30 mcg/0.3 mL dose 1 completed Not Available [facility] 07/13/2025 09:17:46 Influenza, high-dose, quadrivalent, PF 1 completed Not Available [facility] 07/13/2025 09:17:46 COVID-19, mRNA, LNP-S, PF, 30 mcg/0.3 mL dose 1 completed Not Available [facility] 07/13/2025 09:17:46 Influenza, adjuvanted, quadrivalent, PF 2 completed Not Available [facility] 07/13/2025 09:17:46 COVID-19, mRNA, LNP-S, bivalent, PF, 50 mcg/0.5 mL or 25mcg/0.25 mL dose 2 completed Not Available [facility] 07/13/2025 09:17:46 COVID-19, mRNA, LNP-S, PF, 50 mcg/0.5 mL 3 completed Not Available [facility] 07/13/2025 09:17:46 Influenza, adjuvanted, quadrivalent, PF 3 completed Not Available [facility] 07/13/2025 09:17:46 Influenza, high-dose, trivalent, PF 4 completed Not Available [facility] 07/13/2025 09:17:46 COVID-19, mRNA, LNP-S, PF, 50 mcg/0.5 mL 4 completed Not Available [facility] 07/13/2025 09:17:46 Influenza, high-dose, trivalent, PF 9 completed [facility] gaitan [facility] 07/13/2025 09:27:18 Influenza, split virus, trivalent, preservative 9 completed [facility] gait[facility] 07/13/2025 09:27:18 zoster, unspecified formulation 9 completed Not Available [facility] 06/14/2023 02:25:02 Past Encounters Encounter ID Performer Location Encounter Start Date Encounter Closed Date Diagnosis/Indication Diagnosis SNOMED-CT Code Diagnosis ICD10 Code Diagnosis IMO Codes Diagnosis Note [id number] Frankie Weaver MD [facility] ([facility]) [address] [place] [id number] 5 07/09/2023 16:30:42 07/09/2023 17:57:51 Hypercholesterolemia 95927068 E78.00 Active or passive immunization 895180648 Z23 Adult [facility] th examination 863366963 Z00.01 Type 2 rianna betes mellitus 88810503 E11.9 Essential hypertension 82240812 I10 [id number] Frankie Weaver MD [facility] ([facility]) [address] [place] [phone] 01/09/2024 09:21:09 01/09/2024 13:33:38 Type 2 diabetes mellitus 04444376 E11.9 Will check A1c, I suspect he will need medication . Essential hypertension 67809624 I10 BP up a bit today. [id number] Frankie Weaver MD [facility] ([facility]) [address] [place] [id number] 07/13/2024 09:07:11 07/13/2024 10:13:42 Hypercholesterolemia 70879644 E78.00 Type 2 rianna betes mellitus 67129371 E11.9 Improved control with Ozempic. Essential hypertension 35356097 I10 improved a lot with weight loss by home readings. [id number] Frankie Weaver MD [facility] ([facility]) [address] [place] [id number] 01/14/2025 09:05:54 01/17/2025 12:44:02 Hypercholesterolemia 29161493 E78.00 Type 2 rianna betes mellitus 44220650 E11.9 Improved control with Ozempic. Essential hypertension 19094686 I10 improved a lot with weight loss by home readings. [facility] th examination 164350959 Z00.01 [id number] Frankie Weaver MD [facility] ([facility]) [address] [place] [address] [phone] 07/13/2025 09:17:29 07/13/2025 10:06:42 Type 2 diabetes mellitus 17037970 E11.9 60911843 Improved control with Ozempic but with GI side effects so he wants to try something else. Essential hypertension 93801715 I10 improved a lot with weight loss by home readings. Hypercholesterolemia 136 46995 E78.00 Health Concerns Section Related Observation LastModified by Organization Detai ls LastModified Time None Recorded Concern Status LastModified by Organization Details LastModified Time None Recorded Advance Directives Directive None Recorded Payers Insurance Date Sequence Insurance Name Policy Number Policy Castorena Covered Member ID Castorena Member ID Guarantor Name 07/10/2025 1 [id number]/A DVANTAGE - PPO) [id number] Jimenez Cespedes [id number] Jimenez Cespedes Notes Date Note Type Note Provider Name and Address Organization Details Recorded Time 3 text/html Annual WellnessReported by PatientSocial/Behavioral HistoryFor diet and nutrition, patient reportsdiet is high in salt,diet is high in fat, low in fiber,high caloric intake, andhigh carbohydrate meals. For fracture risk, patient reportsno history of fractures,no recent explained fracture,no sudden unexplained fractures, andno previous musculoskeletal injuries. For physical activity, patient reportsexercises on a regular basis. For additional lifestyle factors, patient reportsno tobacco use.Mental Status:For depression risk, patient reportssleep disturbances or insomniabut reportsnever feels sad, empty, or tearful,no loss of interest in activities,no significant changes in weight,no agitation,no loss of energy,no feelings of worthlessness or guilt,no thoughts of suicide,no history of depression, andno history of mood disorders(has a cpap but dawson snot use it).Functional AbilityFor hearing, patient reportsno loss of hearing. For vision, patient reportsno vision problems. Hypertension IM/FMReported by PatientHPIFor associated symptoms, patient reportsshortness of breathandsnoringbut reportsno fatigue,no palpitations,no decline in exercise capacity, andexertional dyspnea. For quality, patient reportshere for check-up. For alleviating factors, patient reportsmedication. For self care, patient reportsnot under emotional stress,non-smoker, andlimiting alcohol intake. Frankie Weaver MD [address] [place] [address], [phone], [facility] 07/09/2023 17:56:12 4 text/html Hypertension IM/FMReported by PatientHPIFor associated symptoms, patient reportsshortness of breathandexertional dyspnea. For quality, patient reportshere for check-up. For alleviating factors, patient reportsmedication. For self care, patient reportsnot under emotional stressandnon-smoker. Frankie Weaver MD [address] [place] [address], [phone], [facility] 01/09/2024 10:10:18 4 text/html Hypertension IM/FMReported by PatientHPIFor quality, patient reportshere for check-up. For alleviating factors, patient reportsmedication. Frankie Weaver MD [address] [place] [address], [phone], [facility] 07/13/2024 09:32:12 5 text/html Hypertension IM/FMReported by PatientHPIFor quality, patient reportshere for check-up. For alleviating factors, patient reportsmedication. Frankie Weaver MD [address] [place], [phone], [facility] 01/14/2025 09:41:59 text/html DiabetesReported by PatientHPIFor duration, patient reportschronic. For control, patient reportstreated with diet and oral medications (ozempic.). For compliance, patient reportscompliant with medicationsandcompliant with follow-up visits. For self care, patient reportsmonitoring glucose weekly(home blood sugars: 102, 118, 107, 98). For associated symptoms, patient reportsno increased thirst,no increased appetite, andno increased urination. General Rash/Skin LesionReported by PatientHPIFor location, patient reportsabdomen (right side.). For quality, patient reportsnot itchyandnot painful(irritating.). For severity, patient reportsmild. For onset/timing, patient reportsgradual onset. Hypertension IM/FMReported by PatientHPIFor quality, patient reportshere for check-up. For severity, patient reportsnormal (<120/<80 mmhg)(home bp readings: 108/74, 116/77, 125/74, 128/80.). For onset/timing, patient reportsgradual onset. For alleviating factors, patient reportsmedication. For associated symptoms, patient reportsno shortness of breath,no palpitations, andno chest pain. For risk factors, patient reportsdiabetes. His Blood pressure is running MUCH better at home and he brought his home BP monitor to compare and it is pretty close to our reading here. Frankie Weaver MD [address] [place], [phone], [facility] 07/13/2025 09:57:18
--- NOTE | 2025-08-17 20:02 | ECG_ITS ---
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 Measurements Intervals Harrison Rate: 50 P: -4 CT: 166 QRS: 16 QRSD: 95 T: 48 QT: 436 QTc: 400 Interpretive Statements SINUS BRADYCARDIA POSSIBLE RIGHT VENTRICULAR CONDUCTION DELAY [RSR (QR) IN V1/V2] No previous ECG available for comparison Electronically Signed On 08-18-2025 08:32:17 CDT by Antonio Hills M.D. [email or web address]
[2025-08-17 20:06] VITALS: BP 161/66; PULSE 53; RESP 16; O2SAT 97
[2025-08-17 20:14] LABS: Hematocrit 43.1 % (37-53); Hemoglobin 14.10 g/dL (11.27-16.99); Mean Corpuscular HGB Conc 32.7 g/dL (30-55); Mean Corpuscular Hemoglobin 29.1 pg (27-33); Mean Corpuscular Volume 88.9 fl (82-101); Nucleated Red Blood Cells % 0 %; Platelet Count 285 10^3/cmm (157-399); Red Blood Count 4.85 10^6/uL (3.85-5.65); White Blood Count 15.87 10^3/uL (3.29-11.43)
--- NOTE | 2025-08-17 20:23 | CTR_ITS ---
PROCEDURE INFORMATION: Exam: CT Abdomen And Pelvis Without Contrast Exam date and time: 08/17/2025 8:31 PM Age: 74 years old Clinical indication: Abdominal pain; Generalized TECHNIQUE: Imaging protocol: Computed tomography of the abdomen and pelvis without contrast. Radiation optimization: All CT scans at this facility use at least one of these dose optimization techniques: automated exposure control; mA and/or kV adjustment per patient size (includes targeted exams where dose is matched to clinical indication); or iterative reconstruction. COMPARISON: US ROR abd aorta aneury scrn 09/07/2019 9:19 AM RADIATION DOSE METRICS: Total DLP (mGy-cm): 849.93 FINDINGS: Lungs: Focal multicystic area measuring 2.7 cm at the posterior left lower lobe on axial images 11 and 12 of series 4 suggestive of cystic bronchiectasis. Calcified granulomata at the imaged lower lungs. Coronary arteries: Coronary artery calcification. Liver: Normal. No mass. Gallbladder and biliary ducts: Normal. No calcified stones. No ductal dilation. Pancreas: Normal. No ductal dilation. Spleen: No splenomegaly. Calcified granulomata. Adrenal glands: Normal. No mass. Kidneys and ureters: Normal. No hydronephrosis. Stomach and bowel: Unremarkable. No bowel dilatation to suggest obstruction. Appendix: No evidence of appendicitis. Intraperitoneal space: Unremarkable. No free air. No significant fluid collection. Vasculature: Moderate systemic atherosclerotic calcification without abdominal aortic aneurysm. Lymph nodes: Unremarkable. No enlarged lymph nodes. Urinary bladder: Unremarkable as visualized. Reproductive: Prostatomegaly measures 6 cm in transverse dimension. Bones/joints: No acute fracture. Degenerative changes along the imaged axial skeletal system. Soft tissues: Small fat containing umbilical hernia. CT/CT abdomen pelvis wo con [id number] IMPRESSION: 1. No acute findings. 2. Chronic and incidental findings as above.
[2025-08-17 20:30] VITALS: BP 161/66; PULSE 52; RESP 16; O2SAT 97
[2025-08-17 20:30] LABS: Alanine Aminotransferase 25 U/L (0-41); Albumin Level 4.4 g/dL (3.5-5.2); Alkaline Phosphatase 82 U/L (40-130); Blood Urea Nitrogen 25 mg/dL (8-23); Calcium 9.3 mg/dL (8.5-10.5); Carbon Dioxide 25 mmol/L (22-29); Chloride 97 mmol/L (98-107); Globulin 3.3 g/dL (1.3-4.6); Glucose 167 mg/dL (65-115); Lipase 54 U/L (13-60); Osmolality Calculated 292 mOsm/kg (285-295); Sodium 137 mmol/L (136-145); Total Protein 7.7 g/dL (6.6-8.7)
[2025-08-17 20:42] LABS: Anion Gap 18.9 (5-19); Aspartate Amino Transferase 28 U/L (0-40); Potassium 3.9 mmol/L (3.5-5.1)
--- NOTE | 2025-08-17 20:50 | W.ED.ABDPA2 ---
HPI - Abdominal Pain General: Chief Complaint: Abdominal Pain Stated Complaint: pain radiating into back clammy n/v Time Seen by Provider: 08/17/25 19:48 History of Present Illness: 74-year-old male presents to the emergency room with complaints of epigastric pain rating to his right upper quadrant into his back. He has had some diarrhea which she relates to having been on Ozempic he has stopped that a couple weeks ago and now is on Jardiance. No history of kidney stones no dysuria urgency or frequency no hematuria. He has not had any hematemesis or coffee-ground emesis. Denies chest pain denies any shortness of breath no fever sweats or chills Associated Symptoms: Reports diarrhea and nausea; Denies chills, dysuria, fever(s) and vomiting Related Data Previous Rx's ?Medication ?Instructions ?Recorded pantoprazole 40 mg tablet,delayed 40 mg PO DAILY #30 tabs 08/17/25 release (Protonix) Allergies Allergy/AdvReac Type Severity Reaction Status Date / Time No Known Allergies Allergy Verified 08/17/25 19:33 Review of Systems Const: Denies: fever(s) or chills Card: Denies: chest pain Resp: Denies: dyspnea GI: Reports: abdominal pain, nausea and diarrhea; Denies: vomiting : Denies: dysuria, urinary frequency or urinary urgency Musc: Denies: neck pain or back pain Skin/Breast: Denies: rash Physical Exam Const: GENERAL APPEARANCE: cooperative ORIENTATION/CONSCIOUSNESS: Yes awake, Yes oriented to person, Yes oriented to place and Yes oriented to time HENMT: COMMON NORMALS: normocephalic, atraumatic and hearing grossly normal bilaterally HEAD & SCALP: normocephalic and atraumatic Resp: COMMON NORMALS: normal respiratory effort, No retractions, No use of accessory muscles and clear to auscultation bilaterally AUSCULTATION: clear to auscultation bilaterally Cardio: COMMON NORMALS: regular rate, regular rhythm and No murmurs present (Cardio) RATE: regular rate RHYTHM: regular rhythm GI: COMMON NORMALS: No hepatosplenomegaly present AUSCULTATION: Yes normoactive bowel sounds PALPATION: Yes Tenderness to palpation present (GI) Details: RUQ, No Guarding due to palpation present (GI) and Yes No hepatosplenomegaly present Extremity: COMMON NORMALS: normal to inspection, capillary refill normal, no clubbing, cyanosis or edema, no calf tenderness and no pedal edema Neuro: SENSORIUM/ORIENTATION: Yes oriented to person, Yes oriented to place and Yes oriented to time Skin: COMMON NORMALS: no rashes or lesions noted GENERAL SKIN EXAM: no rashes or lesions noted Course Vital Signs: Vital signs: Vital Signs Temperature 97.8 F 08/17/25 19:28 Pulse Rate 57 L 08/17/25 23: Respiratory Rate 16 08/17/25 20:30 Blood Pressure 159/79 08/17/25 23:26 Pulse Oximetry 96 08/17/25 23:26 Oxygen Delivery Me thod Room Air 08/17/25 19:28 MDM - Abdominal Pain Medical Decision Making Mild leukocytosis CT of the abdomen benign. He does have some abdominal pain and diarrhea fairly frequently which he has been equating to his Ozempic. He may have some biliary colic given his symptoms. Recommend that he consider holding the Ozempic we will set him up for a HIDA scan and follow-up with general surgery. Urine did not show significant hematuria. There is no sign of cystitis no sign of acute intra-abdominal pathology such as bowel obstruction perforation diverticulitis no sign of renal nephrolithiasis. Medical Records I reviewed the patient's medical records. Lab Data I reviewed the patient's lab results. 08/17/25 20:00 08/17/25 20:00 Labs/Radiology: Radiology Impressions Abdomen/Pelvis CT 08/17/25 20:23 IMPRESSION: 1. No acute findings. 2. Chronic and incidental findings as above. Laboratory Results WBC 15.87 10^3/uL (3.29-11.43) H 08/17/25 20:00 RBC 4.85 10^6/uL (3.85-5.65) 08/17/25 20:00 Hgb 14.10 g/dL (11.27-16.99) 08/17/25 20: Hct 43.1 % (37-53) 08/17/25 20:00 MCV 88.9 fl (82-101) 08/17/25 20:00 MCH 29.1 pg (27-33) 08/17/25 20: MCHC 32.7 g/dL (30-55) 08/17/25 20: RDW 12.4 % (12.1-15.1) 08/17/25 20:00 Plt Count 285 10^3/cmm (157-399) 08/17/25 20:00 MPV 9.2 fL (7.4-10.4) 08/17/25 20:00 Neut % (Auto) 82.9 % 08/17/25 20:00 Lymph % (Auto) 9.8 % 08/17/25 20:00 [place] % (Auto) 5.7 % 08/17/25 20:00 Eos % (Auto) 0.7 % 08/17/25 20:00 Baso % (Auto) 0.4 % 08/17/25 20:00 Neut # (Auto) 13.16 10^3/uL (1.8-7.7) H 08/17/25 20:00 Lymph # (Auto) 1.6 10^3/uL (0.8-4.8) 08/17/25 20:00 [place] # (Auto) 0.9 10^3/uL (0.2-0.9) 08/17/25 20:00 Eos # (Auto) 0.1 10^3/uL (0.0-0.8) 08/17/25 20:00 Baso # (Auto) 0.1 10^3/uL (0.0-0.1) 08/17/25 20:00 Nucleated RBC % (auto) 0 % 08/17/25 20:00 Nucleated RBCs # 0.0 /100WBC 08/17/25 20:00 Sodium 137 mmol/L (136-145) 08/17/25 20:00 Potassium 3.9 mmol/L (3.5-5.1) 08/17/25 20:00 Chloride 97 mmol/L (98-107) L 08/17/25 20:00 Carbon Dioxide 25 mmol/L (22-29) 08/17/25 20:00 Anion Gap 18.9 (5-19) 08/17/25 20:00 BUN 25 mg/dL (8-23) H 08/17/25 20:00 Creatinine 1.3 mg/dL (0.7-1.2) H 08/17/25 20:00 GFR Calculation Not Reportable 08/17/25 20:00 Glucose 167 mg/dL (65-115) H 08/17/25 20:00 Calculated Osmolality 292 mOsm/kg (285-295) 08/17/25 20:00 Calcium 9.3 mg/dL (8.5-10.5) 08/17/25 20:00 Total Bilirubin 0.6 mg/dL (0.15-1.2) 08/17/25 20:00 AST 28 U/L (0-40) 08/17/25 20:00 ALT 25 U/L (0-41) 08/17/25 20:00 Alkaline Phosphatase 82 U/L (40-130) 08/17/25 20:00 Total Protein 7.7 g/dL (6.6-8.7) 08/17/25 20: Albumin 4.4 g/dL (3.5-5.2) 08/17/25 20: Globulin 3.3 g/dL (1.3-4.6) 08/17/25 20:00 Lipase 54 U/L (13-60) 08/17/25 20:00 Urine Color Yellow (Yellow) 08/17/25 20:48 Urine Appearance Clear (CLEAR) 08/17/25 20:48 Urine pH 5.0 (5-7) 08/17/25 20:48 Ur Specific [place] 1.034 (1.005-1.030) H 08/17/25 20:48 Urine Protein Trace (Negative) A 08/17/25 20:48 Urine Glucose (UA) 3+ (Normal) H 08/17/25 20:48 Urine Ketones 1+ (Negative) H 08/17/25 20:48 Urine Blood Negative (Negative) 08/17/25 20:48 Urine Nitrate Negative (Negative) 08/17/25 20:48 Urine Bilirubin Negative (Negative) 08/17/25 20:48 Urine Urobilinogen 1.0 mg/dL (Negative) 08/17/25 20:48 Ur Leukocyte Esterase Negative (Negative) 08/17/25 20:48 Urine RBC None /hpf (0-2) 08/17/25 20:48 Urine WBC None /hpf (0-5) 08/17/25 20:48 Ur Squamous Epith Cells None /hpf (0-5) 08/17/25 20:48 Amorphous Sediment Not Reportable 08/17/25 20:48 Urine Bacteria None /hpf (NONE) 08/17/25 20:48 All radiology interpretation(s) finalized by discharge EKG Data EKG 1: Interpretation: EKG 08/17/2025 1926 sinus bradycardia rate of 50 MO interval 166 QTc 400 no acute EKG changes noted no ST elevation or T wave inversion. No previous EKGs available for comparison Discharge Plan Discharge Patient Disposition: Home Clinical Impression: Abdominal pain Condition: Stable Prescriptions: New pantoprazole [Protonix] 40 mg tablet,delayed release (DR/EC) 40 mg PO DAILY Qty: 30 0RF Discharge Orders: Discharge ED (Routine); Ordered 08/17/25 Ordered By: Ramakrishna Weber Referrals: Frankie Weaver MD [Primary Care Provider, Family Practice] Discharge Diet: As Directed Discharge Activity: Increase activity as tolerated Patient Instructions: Abdominal Pain (ED), Opioid Safety, Pain Management, Patient Portal & Justina Instructions Activity Restrictions/Additional Instructions: Thank you for choosing [facility] for your healthcare needs today. It is very important that you follow up as instructed or that you return to the Emergency Department should you have concerns or if your condition changes or worsens in any way. Emergency department visits are focused on emergent conditions, in some cases you may require further evaluation on an outpatient basis. You were seen today for abdominal pain. CT of your abdomen was negative. Your white count was mildly elevated however your liver functions were normal. Recommend the start pantoprazole 40 mg daily. Will also set you up for an outpatient HIDA scan and follow-up with general surgeon. (Please note that included in your discharge packet is information concerning opioid safety and pain management. This information is given to all patients were discharged from the ER regardless of their discharge diagnosis or the medicines they usually take or are prescribed.) Print Language: Kuwaiti Coding Level of Care Code ED [employer] for Nafisa Diaz
[2025-08-17 20:55] LABS: Glucose Urine UA 3+ (Normal); Nitrate Urine Negative (Negative)
[2025-08-17] MEDS: lidocaine 2% viscous 15 ML, aluminum-mag hydrox-simethicon 30 ML, sucralfate oral liq 1 GM PO (21:03)
[2025-08-17] MEDS: ondansetron 2 mg/ML SDV 2 mL 4 MG IVP (21:19)
[2025-08-17 21:39] LABS: Add Urine Microscopic? YES; Specific Gravity, Urine 1.034 (1.005-1.030); UA Slide Review UA Slide Review Perf
[2025-08-17 23:26] VITALS: BP 159/79; PULSE 57; O2SAT 96
--- NOTE | 2025-08-18 08:08 | DCPLANNER ---
messaged gen surg for er f/u. faxed hida scan outpatient order to scheduling
== END 2025-08-17 21:55 | disposition home or self-care (01) ==
PROVIDERS: Emergency Provider Family Medicine; PCP Family Medicine
DX: R10.9 Unspecified abdominal pain (principal)
CPT/HCPCS: 74176; 80053; 81001; 83690; 85025; 93005; 96374; 99285; J2405; J7040; J9999